=== PATIENT | female | born 1960 | race Caucasian/White ===

== ENCOUNTER 2024-08-04 08:01 | Emergency (ER) | payer OTHER, SELFPAY ==
[2024-08-04] VITALS (13 sets, daily range): BP systolic 127–217; BP diastolic 59–100; PULSE 71–103; RESP 20; TEMP 37; O2SAT 90–97; BMI 26.6
--- NOTE | 2024-08-04 08:18 | EKG_ITS ---
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
[2024-08-04 08:29] LABS: Add Manual Diff / Slide Review NO; Basophils Absolute Auto 100 /uL (0-100); Basophils Percent Auto 0.6 % (0-2); Eosinophils Absolute Auto 0 /uL (0-450); Eosinophils Percent Auto 0.4 % (2-4); Hematocrit 50.9 % (36-46); Hemoglobin 17.1 g/dL (12.0-16.0); Lymphocytes Absolute Auto 2800 /uL (1100-4500); Lymphocytes Percent Auto 22.6 % (25-40); Mean Corpuscular HGB Conc 33.6 % (30-36); Mean Corpuscular Hemoglobin 31.8 PG (26-34); Mean Corpuscular Volume 94.6 fL (80-100); Monocytes Absolute Auto 800 /uL (0-900); Monocytes Percent Auto 6.7 % (3-14); Neutrophils Absolute Auto 8600 /uL (1500-7000); Neutrophils Percent Auto 69.7 % (50-75); Platelet Count 229 X10^3/uL (150-400); Red Blood Cell Count 5.38 X10^6/uL (4.0-5.2); Red Cell Distribution Width 13.3 % (11.6-14.8); White Blood Cell Count 12.3 X10^3/uL (4.5-11.0)
[2024-08-04 08:44] LABS: Alanine Aminotransferase 40 IU/L (<35); Albumin 4.9 g/dL (3.5-5.0); Albumin Globulin Ratio 1.4 (1.0-2.8); Alkaline Phosphatase 73 U/L (38-126); Aspartate Aminotransferase 37 IU/L (14-36); BUN Creatinine Ratio 17.4 (6-22); Bilirubin Total 1.1 mg/dL (0.2-1.3); Blood Urea Nitrogen 12 mg/dL (7-17); Calcium 9.2 mg/dL (8.4-10.2); Carbon Dioxide 25 mmol/L (22-32); Chloride 103 mmol/L (98-107); Estimated Glomerular Filt Rate > 60 mL/min (>60); Globulin 3.4 g/dL (1.7-4.1); Glucose 118 mg/dL (80-110); HEMOLYSIS < 15 (0-50); Lipase 104 U/L (23-300); Potassium 3.9 mmol/L (3.4-5.1); Sodium 138 mmol/L (137-145); Total Protein 8.3 g/dL (6.3-8.2)
--- NOTE | 2024-08-04 09:17 | ED_ITS ---
HPI - Abdominal Pain General Chief Complaint: Abdominal Pain Stated Complaint: L side abd pain Time Seen by Provider: 08/04/24 08:08 Source: patient, RN notes reviewed and old records reviewed Mode of arrival: Ambulatory Limitations: no limitations History of Present Illness HPI narrative: 63-year-old female with no reported medical issues complaint of left-sided abdominal pain radiating to lower back x2 days. Patient states pain has been sort of left upper quadrant does radiate around to her back a little bit. She denies any fevers or chills. No chest pain or shortness of breath. Patient states symptoms started were worse on Friday kind of improved Friday did have a bowel movement on Friday which she states was soft and regular. And then did okay yesterday but had increased pain overnight and into today. States she would some nausea this morning she was not had ever had any vomiting. She states had a bowel movement on Friday but has not had any bowel movements since. No dysuria, urgency or frequency. No black or bloody stools at any point. No rash or skin changes. Has not had similar symptoms in the past. Has not taken anything at home for pain. Denies any prior surgeries. No daily prescription medications. He reports an allergy to sulfa she gets a rash and itchy. Does use tobacco daily, does drink alcohol daily, denies any recreational drugs. Does have a primary care physician she follows. She was accompanied by her . Review of Systems Review of Systems ROS Unobtainable: All systems reviewed & are unremarkable except as noted in HPI and below Patient History Social History Smoking Status: Current every day smoker Smoking Status: Current every day smoker tobacco type: cigarettes Exam Narrative Exam Narrative: GENERAL: Alert and oriented x three, female in mild distress HEENT: Head normocephalic, atraumatic, EOMI, pupils reactive, face symmetric, moist mucous membranes NECK: Supple, full range of motion CARDIOVASCULAR: Regular rate and rhythm without murmurs, rubs or gallops. RESPIRATORY: Breath sounds equal bilaterally, no wheezes rales or rhonchi. ABDOMEN: Soft, patient is tender on exam particularly the left side, she was more tender left upper quadrant than left lower. Nontender on the right but has some referred pain to the left with palpation on the right upper quadrant. Nondistended. Normoactive bowel sounds all 4 quadrants. No guarding or rebound, rigidity, no mass : No CVA tenderness EXTREMITIES: Normal range of motion, no clubbing or edema. Neurovascularly intact NEUROLOGICAL: Cranial nerves II through XII grossly intact. Moving all extremities SKIN: Warm, dry, no petechiae, no rashes or lesions. Initial Vital Signs Initial Vital Signs: Vital Signs Temperature 98.6 F 08/04/24 08:12 Pulse Rate 103 H 08/04/24 08:12 Respiratory Rate 20 08/04/24 08:12 Blood Pressure 217/100 H 08/04/24 08:12 Pulse Oximetry 97 08/04/24 08:12 Oxygen Delivery Method Room Air 08/04/24 08:12 Course Orders Ordered: Discontinued Medications Ondansetron HCl (Ondansetron 4 Mg/2 Ml Inj) 4 mg IV NOW PRN PRN Reason: Nausea And Vomiting Ondansetron HCl (Ondansetron 4 Mg Odt) 4 mg PO NOW PRN PRN Reason: Nausea And Vomiting Vital Signs Vital signs: Vital Signs - 8 hr 08/04/24 08:12 08/04/24 08:20 08/04/24 08:30 Temperature 98.6 F Pulse Rate 103 H 88 Respiratory Rate 20 Blood Pressure 217/100 H 196/88 H Pulse Oximetry 97 96 Oxygen Delivery Method Room Air 08/04/24 08:30 08/04/24 09:00 08/04/24 09:01 Temperature Pulse Rate 87 99 H Respiratory Rate Blood Pressure 182/94 H Pulse Oximetry 94 97 Oxygen Delivery Method 08/04/24 09:01 08/04/24 09:30 08/04/24 09:30 Temperature Pulse Rate 101 H 91 H Respiratory Rate Blood Pressure 170/74 H Pulse Oximetry 96 93 Oxygen Delivery Method Room Air 08/04/24 10:00 08/04/24 10:00 08/04/24 10:30 Temperature Pulse Rate 77 Respiratory Rate Blood Pressure 171/77 H 165/77 H Pulse Oximetry 96 Oxygen Delivery Method 08/04/24 10:30 08/04/24 10:59 08/04/24 11:00 Temperature Pulse Rate 71 74 Respiratory Rate Blood Pressure 127/59 L Pulse Oximetry 94 91 Oxygen Delivery Method MDM - Abdominal Pain Lab Data 08/04/24 08:18 08/04/24 08:18 Labs: Lab Results 08/04/24 08/04/24 Range/Units 08:18 08:57 WBC 12.3 H (4.5-11.0) X10^3/uL RBC 5.38 H (4.0-5.2) X10^6/uL Hgb 17.1 H (12.0-16.0) g/dL Hct 50.9 H (36-46) % MCV 94.6 (80-100) fL MCH 31.8 (26-34) PG MCHC 33.6 (30-36) % RDW 13.3 (11.6-14.8) % Plt Count 229 (150-400) X10^3/uL Neut % (Auto) 69.7 (50-75) % Lymph % (Auto) 22.6 L (25-40) % Trinity % (Auto) 6.7 (3-14) % Eos % (Auto) 0.4 L (2-4) % Baso % (Auto) 0.6 (0-2) % Neut # (Auto) 8600 H (4802-0645) /uL Lymph # (Auto) 2800 (6153-7553) /uL Trinity # (Auto) 800 (0-900) /uL Eos # (Auto) 0 (0-450) /uL Baso # (Auto) 100 (0-100) /uL Sodium 138 (137-145) mmol/L Potassium 3.9 (3.4-5.1) mmol/L Chloride 103 (98-107) mmol/L Carbon Dioxide 25 (22-32) mmol/L BUN 12 (7-17) mg/dL Creatinine 0.69 (0.52-1.04) mg/dL Estimated GFR > 60 (>60) mL/min BUN/Creatinine Ratio 17.4 (6-22) Glucose 118 H (80-110) mg/dL Calcium 9.2 (8.4-10.2) mg/dL Total Bilirubin 1.1 (0.2-1.3) mg/dL AST 37 H (14-36) IU/L ALT 40 H (<35) IU/L Alkaline Phosphatase 73 (38-126) U/L Total Protein 8.3 H (6.3-8.2) g/dL Albumin 4.9 (3.5-5.0) g/dL Globulin 3.4 (1.7-4.1) g/dL Albumin/Globulin Ratio 1.4 (1.0-2.8) Lipase 104 (23-300) U/L Urine RBC 1-5/hpf (0-5/HPF) Urine WBC 1-5/hpf (0-5/HPF) Ur Squamous Epith Cells 1-5 /hpf (0-5/HPF) Urine Bacteria Occasional (0-1) (None) Ur Culture Indicated? Cult not indicated Vol Urine Centrifuged 10ml (spun) Point of care testing: Urine Dip Bedside Urine Glucose Negative Bedside Urine Bilirubin - Negative Bedside Urine Ketone +/- 5 Urine Specific Gage 1.010 Bedside Urine Occult Blood - Negative Bedside Urine pH 6.5 Bedside Urine Protein - Negative Bedside Urine Urobilinogen - Negative Bedside Urine Nitrite - Negative Bedside Urine Leukocytes - Negative Esterase Imaging Data CT scan - abdomen/pelvis: Radiologist's Impression: [address] [address] [address] Scan Report Signed Patient: Nava Christine MR#: [id number] : 1960 Acct:[id number] Age/Sex: 63 / F Date of Service: 08/04/24 Loc: ED Accession Number: [id number] Procedure: CT abdomen pelvis w con Ordering Provider: Johanny Schroeder D.O. PROCEDURE: CT ABDOMEN PELVIS W CON INDICATIONS: L abd pain, L flank pain, intermittent x2 day TECHNIQUE: After the administration of intravenous contrast, axial sections acquired from the lung bases to the pubic symphysis. Coronal and sagittal reformats were performed. For radiation dose reduction, the following was used: automated exposure control, adjustment of mA and/or kV according to patient size. COMPARISON: None. FINDINGS: Image quality: Diagnostic. Lower Chest: No significant findings. ABDOMEN: Liver: Multiple well-circumscribed hypodense areas are seen scattered in liver parenchyma measures up to 2.1 x 1.6 cm in size in anterior periphery of left hepatic lobe and 7.1 Hounsfield unit in density, and up to 3.2 x 3 cm in size in posterior inferior aspect of right hepatic lobe and 4.5 Hounsfield unit in density. Gallbladder: No radiopaque gallstones or wall thickening. Biliary ducts: No biliary dilation. Pancreas: No ductal dilation. Spleen: Size is within normal limits. Adrenal Glands: No adrenal nodules. Kidneys and Ureters: Tiny 1-2 mm nonobstructing left renal calculus is seen. No hydronephrosis. No solid mass. No complex renal cystic lesion which requires follow up. Stomach and Bowel: Normal colonic caliber, without significant wall thickening. No abscess collection. Mild sigmoid diverticulosis without CT evidence of acute diverticulitis. Peritoneum: No abnormal intraperitoneal fluid. No free air. Ventral Wall: No significant ventral hernia. Abdominal Nodes: No retroperitoneal or mesenteric adenopathy by size criteria. Vessels: Aorta and inferior vena cava are normal in size. PELVIS: Pelvic Organs: Unremarkable. Bladder: No bladder wall thickening, accounting for underdistention. Pelvic Nodes: No enlarged lymph nodes. Miscellaneous: No inguinal hernias are seen. Bones: No aggressive osseous abnormality. Degenerative disc disease throughout lower thoracic and lumbar spine. No acute vertebral body compression fractures. IMPRESSION: 1. No bowel obstruction or abnormal bowel wall thickening. No abscess collection. Sigmoid diverticulosis without CT evidence of acute diverticulitis. No free fluid or free air. 2. Tiny nonobstructing left renal calculus. No hydronephrosis or hydroureter. Normal appearing urinary bladder. 3. Multiple well-circumscribed fluid density areas scattered in liver parenchyma likely represent hepatic cysts. Dictated by: Fan Adorno M.D. on 08/04/2024 at 10:02 Approved by: Fan Adorno M.D. on 08/04/2024 at 10:13 ECG Data Attestation: I personally reviewed and interpreted this ECG as follows: Interpretation: EKG shows sinus rhythm rate of 92 [place] 120 QRS 86 QTC of 445, no acute ST elevation or depression. [facility] Narrative Medical decision making narrative: 63-year-old female hypertensive, tachycardic upon arrival states she has white coat syndrome. No reported medical issues has a white count of 12 but otherwise overall appropriate labs she was tender on exam particularly in the left upper and lower quadrant little bit in the left flank. No rash or skin changes suggestive shingles. Urine does not show any obvious signs of infection or blood felt appropriate for CT abdomen pelvis with contrast to evaluate for intra-abdominal process such as diverticulitis, colitis, kidney stone, pyelonephritis or other.. Patient defers anything for pain. Labs show white count of 12.3 hemoglobin of 17 platelets are 229. Electrolytes are overall appropriate BUN 12 creatinine 0.69 glucose is 118 bilirubin is 1.1 with a lipase of 104 AST ALT are slightly elevated at 37 and 40. Point of care urine shows trace ketones, no nitrates or leuks. EKG shows sinus rhythm with no acute ST changes. CT abdomen pelvis no bowel obstruction or abnormal bowel wall thickening no abscess sigmoid diverticulosis without evidence of diverticulitis no free fluid or free air tiny nonobstructing left renal calculus no hydro no hydroureter normal-appearing urinary bladder multiple well-circumscribed fluid density scattered and liver parenchyma likely represents hepatic cysts. Discussed findings with the patient, she was still uncomfortable so unlikely to be a recently passed kidney stone. We will go ahead and send her urine for culture but no clear signs of infection at this time. Patient is felt appropriate for discharge she feels comfortable with this plan she states she will use oral [id number] medications for pain management. Discussed return precautions. Discharge Plan Departure Patient Disposition: Home Clinical Impression: Left sided abdominal pain Instructions: DI for Abdominal Pain-Adult Activity Restrictions/Additional Instructions: Please follow up for recheck if your symptoms are not improving. Your workup shows a small stone in the left kidney but not in the ureter as well as what appears to be hepatic cyst in your liver. These are unlikely source of your pain. I did order a urine culture, these typically take 48-72 hours to result if positive we would contact you. If negative we do not call with results. Please return for fevers, new or worsening abdominal back or flank pain, persistent vomiting, any black or bloody stools, lightheadedness or passing out, difficulty with urination or other new or concerning changes. Stand Alone Forms: Patient Portal/API/Survey
--- NOTE | 2024-08-04 09:28 | DI.CT.S_ITS ---
PROCEDURE: CT ABDOMEN PELVIS W CON INDICATIONS: L abd pain, L flank pain, intermittent x2 day TECHNIQUE: After the administration of intravenous contrast, axial sections acquired from the lung bases to the pubic symphysis. Coronal and sagittal reformats were performed. For radiation dose reduction, the following was used: automated exposure control, adjustment of mA and/or kV according to patient size. COMPARISON: None. FINDINGS: Image quality: Diagnostic. Lower Chest: No significant findings. ABDOMEN: Liver: Multiple well-circumscribed hypodense areas are seen scattered in liver parenchyma measures up to 2.1 x 1.6 cm in size in anterior periphery of left hepatic lobe and 7.1 Hounsfield unit in density, and up to 3.2 x 3 cm in size in posterior inferior aspect of right hepatic lobe and 4.5 Hounsfield unit in density. Gallbladder: No radiopaque gallstones or wall thickening. Biliary ducts: No biliary dilation. Pancreas: No ductal dilation. Spleen: Size is within normal limits. Adrenal Glands: No adrenal nodules. Kidneys and Ureters: Tiny 1-2 mm nonobstructing left renal calculus is seen. No hydronephrosis. No solid mass. No complex renal cystic lesion which requires follow up. Stomach and Bowel: Normal colonic caliber, without significant wall thickening. No abscess collection. Mild sigmoid diverticulosis without CT evidence of acute diverticulitis. Peritoneum: No abnormal intraperitoneal fluid. No free air. Ventral Wall: No significant ventral hernia. Abdominal Nodes: No retroperitoneal or mesenteric adenopathy by size criteria. Vessels: Aorta and inferior vena cava are normal in size. PELVIS: Pelvic Organs: Unremarkable. Bladder: No bladder wall thickening, accounting for underdistention. Pelvic Nodes: No enlarged lymph nodes. Miscellaneous: No inguinal hernias are seen. Bones: No aggressive osseous abnormality. Degenerative disc disease throughout lower thoracic and lumbar spine. No acute vertebral body compression fractures. IMPRESSION: 1. No bowel obstruction or abnormal bowel wall thickening. No abscess collection. Sigmoid diverticulosis without CT evidence of acute diverticulitis. No free fluid or free air. 2. Tiny nonobstructing left renal calculus. No hydronephrosis or hydroureter. Normal appearing urinary bladder. 3. Multiple well-circumscribed fluid density areas scattered in liver parenchyma likely represent hepatic cysts. Dictated by: Fan Adorno M.D. on 08/04/2024 at 10:02 Approved by: Fan Adorno M.D. on 08/04/2024 at 10:13
--- NOTE | 2024-08-04 10:13 | PC.NURSE ---
Pt refusing anything for pain at this time.
[2024-08-04 11:08] LABS: Bacteria Urine Occasional (0-1); RBC Urine 1-5/HPF (0-5/HPF); Squamous Epithelial Cell Urine 1-5 /HPF (0-5/HPF); Urine Volume 10mL (spun); WBC Urine 1-5/HPF (0-5/HPF)
[2024-08-04 11:09] LABS: Culture Indicated Urine Cult Not Indicated
== END 2024-08-04 13:01 | disposition home or self-care (01) ==
PROVIDERS: Emergency Provider Emergency Medicine
DX: R10.12 Left upper quadrant pain (principal); R10.32 Left lower quadrant pain; M54.50 Low back pain, unspecified; F17.210 Nicotine dependence, cigarettes, uncomplicated; F10.90 Alcohol use, unspecified, uncomplicated
CPT/HCPCS: 74177; 80053; 81003; 81015; 83690; 85025; 87086; 93005; 93010; 99282; 99285; Q9967